=== PATIENT | male | born 1960 | race Caucasian/White ===

== ENCOUNTER 2024-11-30 13:10 | Outpatient (CLI) | payer OTHER | END 2024-11-30 13:22 | disposition home or self-care (01) | LOC: TOM 13:10 | PROVIDERS: ATTEND Urology | DX: C67.9 Malignant neoplasm of bladder, unspecified (principal) ==

== ENCOUNTER 2025-04-25 11:50 | Outpatient (CLI) | payer OTHER | END 2025-04-25 11:58 | disposition home or self-care (01) | LOC: SONOGRAMA 11:50 | PROVIDERS: ATTEND Urology | DX: N20.0 Calculus of kidney (principal) ==

== ENCOUNTER 2025-04-29 10:29 | Outpatient (CLI) | payer OTHER | END 2025-04-29 10:31 | disposition home or self-care (01) | LOC: TOM 10:29 | DX: C67.9 Malignant neoplasm of bladder, unspecified (principal) ==